=== PATIENT | male | born 1940 | race Caucasian/White ===

== ENCOUNTER 2016-06-10 09:50 | Inpatient (IN) | payer MEDICARE ==
[~2016-06-10 09:50] MED LIST: ASPIR 8181 MG PO; DAILY MULTIPLE1 EAC1 PO; LIPITOR TAB 1010 MG PO; LISINOPRIL5 MG PO; METOPROLOL TART25 MG PO; SAW PALMETTO80 MG PO
[2016-06-10 11:03] LABS: HEMOGLOBIN 15.5 gm/dl (14.0-17.5); RED BLOOD COUNT 4.82 M/UL (4.20-5.50); WHITE BLOOD COUNT 12.5 K/UL (4.5-11.0)
[2016-06-10 11:21] LABS: BUN/CREATININE RATIO 13 (0-10)
[2016-06-11 05:36] LABS: RED BLOOD COUNT 4.4 M/UL (4.20-5.50); WHITE BLOOD COUNT 11.7 K/UL (4.5-11.0)
[2016-06-11 05:57] LABS: BUN/CREATININE RATIO 14 (0-10)
[2016-06-12 06:10] LABS: RED BLOOD COUNT 4.4 M/UL (4.20-5.50); WHITE BLOOD COUNT 10.5 K/UL (4.5-11.0)
[2016-06-12 06:34] LABS: BUN/CREATININE RATIO 12 (0-10)
[2016-06-13 06:03] LABS: HEMOGLOBIN 13.5 gm/dl (14.0-17.5); RED BLOOD COUNT 4.27 M/UL (4.20-5.50); WHITE BLOOD COUNT 7.9 K/UL (4.5-11.0)
[2016-06-13 06:17] LABS: BUN/CREATININE RATIO 11 (0-10)
[2016-06-15 04:32] LABS: HEMOGLOBIN 12.3 gm/dl (14.0-17.5); RED BLOOD COUNT 3.87 M/UL (4.20-5.50); WHITE BLOOD COUNT 7.3 K/UL (4.5-11.0)
[2016-06-15 04:51] LABS: BUN/CREATININE RATIO 7 (0-10)
[2016-06-15] MEDS ORDERED: NORCO 5-325 TA1 EACH PO (12:32)
== END 2016-06-15 13:20 | disposition home or self-care (01) | DRG 418 ==
LOC: ER1 09:50 → M/S 15:28 → ZEROF 15:28 → M/S 16:56
PROVIDERS: Emergency Medicine; Family Medicine; Internal Medicine; Surgery; ADMIT Emergency Medicine
PROC: 0FT44ZZ Resection of Gallbladder, Percutaneous Endoscopic Approach (ICD-10-PCS; principal; 2016-06-14 10:06)
DX: K85.10 Biliary acute pancreatitis without necrosis or infection (principal); K81.0 Acute cholecystitis; I10 Essential (primary) hypertension; I25.10 Atherosclerotic heart disease of native coronary artery without angina pectoris; E78.5 Hyperlipidemia, unspecified; E11.9 Type 2 diabetes mellitus without complications; K57.90 Diverticulosis of intestine, part unspecified, without perforation or abscess without bleeding; K44.9 Diaphragmatic hernia without obstruction or gangrene; K82.8 Other specified diseases of gallbladder; E87.6 Hypokalemia; K76.0 Fatty (change of) liver, not elsewhere classified; Z95.1 Presence of aortocoronary bypass graft; Z95.3 Presence of xenogenic heart valve; Z87.891 Personal history of nicotine dependence; Z84.89 Family history of other specified conditions; Z82.49 Family history of ischemic heart disease and other diseases of the circulatory system; Z83.3 Family history of diabetes mellitus; Z80.3 Family history of malignant neoplasm of breast; Z79.82 Long term (current) use of aspirin; Z79.899 Other long term (current) drug therapy
CPT/HCPCS: ECHO; 36415; 74181; 76705; 78227; 80048; 80053; 81001; 82150; 82248; 83690; 84132; 85025; 85027; 93005; 93306; 96361; 96374; 99285; A9537; J0295; J2270; J2405; J2710; J2805; J3010; J7030; J7050; J7120; Q9962

== ENCOUNTER → 2016-06-22 | Outpatient (CLI) | payer MEDICARE ==
[~2016-06-22] MED LIST changes: +NORCO 5-325 TA1 EACH PO
[2016-06-22 09:42] LABS: BUN/CREATININE RATIO 13 (0-10)
[2016-06-22 10:01] LABS: HEMOGLOBIN 15.1 gm/dl (14.0-17.5); RED BLOOD COUNT 4.77 M/UL (4.20-5.50); WHITE BLOOD COUNT 7.3 K/UL (4.5-11.0)
== END ==
LOC: LAB 08:43
PROVIDERS: Emergency Medicine
DX: E11.9 Type 2 diabetes mellitus without complications (principal); E78.2 Mixed hyperlipidemia; I10 Essential (primary) hypertension; I25.10 Atherosclerotic heart disease of native coronary artery without angina pectoris; K85.00 Idiopathic acute pancreatitis without necrosis or infection; R23.8 Other skin changes; R41.81 Age-related cognitive decline; R73.09 Other abnormal glucose
CPT/HCPCS: 36415; 80053; 80061; 82043; 82570; 83036; 83704; 85027

== ENCOUNTER → 2016-09-21 | Outpatient (CLI) | payer MEDICARE ==
[2016-09-21 08:02] LABS: BUN/CREATININE RATIO 14 (0-10)
== END ==
LOC: LAB 07:18
PROVIDERS: Emergency Medicine
DX: K85.10 Biliary acute pancreatitis without necrosis or infection (principal); I25.10 Atherosclerotic heart disease of native coronary artery without angina pectoris; E78.2 Mixed hyperlipidemia; I10 Essential (primary) hypertension
CPT/HCPCS: 36415; 80053; 80061; 83704

== ENCOUNTER → 2020-04-22 | Outpatient (CLI) | payer MEDICARE ==
[~2020-04-22] MED LIST changes: +ARICEPT10 MG PO; +AUGMENTIN 875-1 EACH PO; +DONEPEZIL HCL5 MG PO; +ENTRESTO 24 MG1 EACH PO; +FLAGYL500 MG PO; +GLUCOPHAGE500 MG PO; +LEVAQUIN500 MG PO; +REMERON15 MG PO; +SAW PALMETTO C1 EACH PO; +TOPROL XL25 MG PO; +TYLENOL W/CODEIN1 E1 PO; +ZOFRAN ODT 4 MG4 MG PO
[2020-04-22 10:31] LABS: BUN/CREATININE RATIO 12 (0-10)
== END ==
LOC: LAB 09:39
PROVIDERS: Emergency Medicine
DX: E11.9 Type 2 diabetes mellitus without complications (principal); I10 Essential (primary) hypertension; E78.2 Mixed hyperlipidemia
CPT/HCPCS: 36415; 80053; 83036

== ENCOUNTER → 2021-01-10 | Outpatient (CLI) | payer MEDICARE ==
[2021-01-10 12:11] LABS: HEMOGLOBIN 15.6 gm/dl (14.0-17.5); RED BLOOD COUNT 4.57 M/UL (4.20-5.50); WHITE BLOOD COUNT 6.5 K/UL (4.5-11.0)
[2021-01-11 15:13] LABS: CHOLESTEROL, TOTAL 215 mg/dL (100-199); HDL SIZE 8.9 nm (>=9.2); HDL-C 45 mg/dL (>39); HDL-P (TOTAL) 24.6 umol/L (>=30.5); LARGE VLDL-P 6.7 nmol/L (<=2.7); LDL SIZE 21.2 nm (>20.5); LDL SIZE 21.2 nm (>=20.8); LDL-C 143 mg/dL (0-99); LDL-P 1630 nmol/L (<1000); LP-IR SCORE 61 (<=45); SMALL LDL-P 484 nmol/L (<=527); TRIGLYCERIDES 152 mg/dL (0-149); VLDL SIZE 52.8 nm (<=46.6)
== END ==
LOC: LAB 11:24
PROVIDERS: Emergency Medicine
DX: E78.2 Mixed hyperlipidemia (principal); I10 Essential (primary) hypertension; E11.9 Type 2 diabetes mellitus without complications; I50.22 Chronic systolic (congestive) heart failure; R53.83 Other fatigue
CPT/HCPCS: 36415; 80053; 80061; 83704; 84443; 84550; 85025

== ENCOUNTER 2021-03-04 19:52 | Inpatient (IN) | payer MEDICARE ==
[~2021-03-04] VITALS: Ht 182.9 cm; Wt 108.9 kg
[2021-03-04 20:42] LABS: BUN/CREATININE RATIO 13 (0-10)
[2021-03-04 21:34] LABS: HEMOGLOBIN 13.8 gm/dl (14.0-17.5); RED BLOOD COUNT 4.16 M/UL (4.20-5.50); WHITE BLOOD COUNT 4.4 K/UL (4.5-11.0)
--- NOTE | 2021-03-05 03:20 | NUR ---
PT VERY CONFUSED. UNABLE TO OBTAIN ANY ADMISSION INFORMATION FROM HIM. PT UNABLE TO TELL ME HOME MEDICATIONS AND UNABLE TO CONFIRM MEDICATIONS. TRIED TO CONTACT DAUGHTER (SHUN) MULTIPLE TIMES. HOWEVER, NO ONE ANSWERED THE PHONE. LEFT A VOICE MAIL ON DAUGHTER'S PHONE. AWAITING CALL BACK.
[2021-03-05] MEDS ORDERED: SEROQUEL25 MG PO (05:47)
[2021-03-05] MEDS ORDERED: LIPITOR20 MG PO (05:47)
[2021-03-05] MEDS ORDERED: NAMENDA5 MG PO (05:48)
[2021-03-05 07:18] LABS: HEMOGLOBIN 13.1 gm/dl (14.0-17.5)
[2021-03-05 08:06] LABS: BUN/CREATININE RATIO 12 (0-10)
[2021-03-05 10:35] LABS: ACINETOBACTER BAUMANNII Not Detected (Negative); CANDIDA ALBICANS Not Detected (Negative); CANDIDA KRUSEI Not Detected (Negative); CANDIDA TROPICALIS Not Detected (Negative); ENTEROCOCCUS Not Detected (Negative); ESCHERICHIA COLI Not Detected (Negative); HAEMOPHILUS INFLUENZAE Not Detected (Negative); KLEBSIELLA OXYTOCA Not Detected (Negative); KLEBSIELLA PNEUMONIAE Not Detected (Negative); KPC-CARBAPENEM-RESISTANCE GENE Not Detected (Negative); PROTEUS Not Detected (Negative); PSEUDOMONAS AERUGINOSA Not Detected (Negative); SERRATIA MARCESANS Not Detected (Negative); STAPHYLOCOCCUS AUREUS Not Detected (Negative); STREP AGALACTIAE (GROUP B) Not Detected (Negative); STREP PYOGENES (GROUP A) Not Detected (Negative); STREPTOCOCCUS Not Detected (Negative); vanA/B (VANCOMYCIN RESIST GENE Not Detected (Negative)
[2021-03-05 11:58] LABS: STAPHYLOCOCCUS DETECTED (Negative); mecA (METHICILLIN RESIST GENE DETECTED (Negative)
[2021-03-06 07:09] LABS: BUN/CREATININE RATIO 12 (0-10); HEMOGLOBIN 14.4 gm/dl (14.0-17.5)
[2021-03-06 07:13] LABS: RED BLOOD COUNT 4.51 M/UL (4.20-5.50); WHITE BLOOD COUNT 5.9 K/UL (4.5-11.0)
[2021-03-07 06:03] LABS: HEMOGLOBIN 16.8 gm/dl (14.0-17.5); RED BLOOD COUNT 5.08 M/UL (4.20-5.50); WHITE BLOOD COUNT 3.6 K/UL (4.5-11.0)
[2021-03-07 06:23] LABS: BUN/CREATININE RATIO 14 (0-10)
[2021-03-08 06:15] LABS: HEMOGLOBIN 16.4 gm/dl (14.0-17.5); RED BLOOD COUNT 4.94 M/UL (4.20-5.50)
[2021-03-08 06:16] LABS: WHITE BLOOD COUNT 8.1 K/UL (4.5-11.0)
[2021-03-08 06:32] LABS: BUN/CREATININE RATIO 24 (0-10)
[2021-03-09 05:43] LABS: HEMOGLOBIN 16.4 gm/dl (14.0-17.5); RED BLOOD COUNT 4.96 M/UL (4.20-5.50); WHITE BLOOD COUNT 9.3 K/UL (4.5-11.0)
[2021-03-10 06:31] LABS: HEMOGLOBIN 16.2 gm/dl (14.0-17.5); RED BLOOD COUNT 4.91 M/UL (4.20-5.50); WHITE BLOOD COUNT 10.6 K/UL (4.5-11.0)
[2021-03-10 06:44] LABS: BUN/CREATININE RATIO 32 (0-10)
[2021-03-10] MEDS ORDERED: AUGMENTIN 875-1 EACH PO (11:48)
[2021-03-10] MEDS ORDERED: IPRAT-ALBUT 0.5-3 ML NEB (11:48)
[2021-03-10] MEDS ORDERED: LASIX20 MG PO (11:58)
[2021-03-10] MEDS ORDERED: DEXAMETHASONE1 MG PO (11:58)
== END 2021-03-10 15:32 | DRG 177 ==
LOC: ER1 19:52 → MED SURG 4 22:42 → CDU 22:42 → MED SURG 4 03-05 03:17
PROVIDERS: Emergency Medicine; Internal Medicine; ADMIT Internal Medicine
PROC: 8E0ZXY6 Isolation (ICD-10-PCS; principal; 2021-03-05)
PROC: XW033F6 Introduction of Bamlanivimab Monoclonal Antibody into Peripheral Vein, Percutaneous Approach, New Technology Group 6 (ICD-10-PCS; 2021-03-05)
PROC: XW033E6 Introduction of Etesevimab Monoclonal Antibody into Peripheral Vein, Percutaneous Approach, New Technology Group 6 (ICD-10-PCS; 2021-03-05)
PROC: 3E0333Z Introduction of Anti-inflammatory into Peripheral Vein, Percutaneous Approach (ICD-10-PCS; 2021-03-06)
PROC: XW033E5 Introduction of Remdesivir Anti-infective into Peripheral Vein, Percutaneous Approach, New Technology Group 5 (ICD-10-PCS; 2021-03-08)
DX: U07.1 COVID-19 (principal); G93.41 Metabolic encephalopathy; J96.01 Acute respiratory failure with hypoxia; J12.82 Pneumonia due to coronavirus disease 2019; J15.9 Unspecified bacterial pneumonia; I50.22 Chronic systolic (congestive) heart failure; N39.0 Urinary tract infection, site not specified; N17.9 Acute kidney failure, unspecified; I35.0 Nonrheumatic aortic (valve) stenosis; E78.5 Hyperlipidemia, unspecified; E11.9 Type 2 diabetes mellitus without complications; F03.90 Unspecified dementia, unspecified severity, without behavioral disturbance, psychotic disturbance, mood disturbance, and anxiety; D69.6 Thrombocytopenia, unspecified; I11.0 Hypertensive heart disease with heart failure; R53.81 Other malaise; K57.90 Diverticulosis of intestine, part unspecified, without perforation or abscess without bleeding; Z82.49 Family history of ischemic heart disease and other diseases of the circulatory system; Z95.4 Presence of other heart-valve replacement; Z83.3 Family history of diabetes mellitus; Z91.81 History of falling; Z23 Encounter for immunization; Z95.810 Presence of automatic (implantable) cardiac defibrillator; Z79.82 Long term (current) use of aspirin; Z79.899 Other long term (current) drug therapy
CPT/HCPCS: 36415; 70450; 71045; 80048; 80053; 80202; 81001; 82550; 82553; 82728; 83605; 83735; 83874; 83880; 84100; 84132; 84439; 84443; 84484; 85025; 85379; 86140; 87040; 87077; 87150; 87186; 94640; 94664; 94760; 97116-GP-CQ; 97162; 97530; 97530-GP-CQ; 99285; G0378; J0696; J1100; J1205; J1650; J1940; J2185; J3370; J7030; J7070; U0002